=== PATIENT | male | born 1980 | race Two or more races ===

== ENCOUNTER 2024-02-12 12:20 | Emergency (ER) | payer OTHER ==
[~2024-02-12] VITALS: Ht 177.8 cm; Wt 79.4 kg
[2024-02-12] MEDS ORDERED: CEFTRIAXONE SODIUM 1,000 MG VIAL IM ONE (16:00)
[2024-02-12] MEDS ORDERED: CEFTRIAXONE SODIUM 1,000 MG VIAL ONE (16:00)
[2024-02-12] MEDS ORDERED: LIDOCAINE HCL 1% 10ML VIAL PERCUT ONE (16:00)
[2024-02-12] MEDS ORDERED: TETANUS & DIPHTHERIA TOX,ADULT 0.5 ML VIAL IM ONE (16:00)
[2024-02-12] MEDS ORDERED: LIDOCAINE HCL 1% 10ML VIAL ONE (16:01)
[2024-02-12] MEDS ORDERED: TETANUS DIPHTHERIA TOX. ADSOR 5 ML VIAL IM ONE (16:01)
[2024-02-12] MEDS ORDERED: DUI500 PO (16:37)
== END 2024-02-12 16:57 ==
LOC: ER 12:21
DX: S51.822A Laceration with foreign body of left forearm, initial encounter (principal); W45.8XXA Other foreign body or object entering through skin, initial encounter; W22.8XXA Striking against or struck by other objects, initial encounter; Y93.89 Activity, other specified; Y92.89 Other specified places as the place of occurrence of the external cause

== ENCOUNTER 2024-02-23 18:39 | Emergency (ER) | payer OTHER ==
[~2024-02-23] VITALS: Ht 177.8 cm; Wt 79.4 kg
[~2024-02-23 18:39] MED LIST: DUI500 PO
== END 2024-02-23 19:49 | disposition home or self-care (01) ==
LOC: ER 18:40
DX: Z48.02 Encounter for removal of sutures (principal)